=== PATIENT | female | born 1965 | race Caucasian/White ===

== ENCOUNTER → 2017-03-06 | Outpatient (CLI) | payer OTHER ==
--- NOTE | 2017-03-06 10:18 | MM ---
Reason for exam: follow-up at short interval from prior study. Last mammogram was performed 5 months ago. History: Benign US biopsy breast VAD RT of the right breast, September 24, 2016. Physical Findings: Nurse did not find any significant physical abnormalities on exam. MG Diagnostic Mammo RT w CAD CC, MLO, ML, spot compression MLO, and spot compression CC view(s) were taken of the right breast. Prior study comparison: September 24, 2016, right breast MG diagnostic mammo RT wo CAD. September 10, 2016, right breast MG work up mamm w CAD RT. There are scattered fibroglandular densities. Previous mammotome biopsy in the right breast. There is no discrete abnormality including area of concern. No significant new findings when compared with previous films. These results were verbally communicated with the patient and result sheet given to the patient on 03/06/17. ASSESSMENT: Benign, BI-RAD 2 RECOMMENDATION: Return to routine screening mammogram schedule for both breasts. Back on schedule for September 2017.
== END | disposition home or self-care (01) ==
LOC: RADMAMWWP 09:04
PROVIDERS: ATTEND Surgery
DX: R92.8 Other abnormal and inconclusive findings on diagnostic imaging of breast (principal)

== ENCOUNTER 2017-06-24 06:48 | Day surgery (SDC) | payer OTHER ==
[2017-06-19 15:29] VITALS: BMI 26.6
[~2017-06-24 06:48] MED LIST: LACTATED RINGERS 1,000 ML IV SCH
[2017-06-24 07:09] VITALS: TEMP 98.6
[2017-06-24] MEDS ORDERED: LACTATED RINGERS 1,000 ML IV ONE (07:13)
[2017-06-24] MEDS ORDERED: MIDAZOLAM 2 MG/2 ML VIAL ONE (07:36)
[2017-06-24] MEDS ORDERED: fentaNYL (PF) 50 MCG/ML 2 ML AMP ONE (07:36)
[2017-06-24] MEDS ORDERED: PROPOFOL 10 MG/ML 20 ML VIAL IV ONE (07:36)
[2017-06-24] MEDS ORDERED: GLUCAGON 1 MG/ML VIAL ONE (07:36)
--- NOTE | 2017-06-24 08:02 | P.OP ---
Date of Procedure: 06/24/17 Preoperative Diagnosis: Screening colonoscopy Postoperative Diagnosis: Tortuous redundant sigmoid colon, internal hemorrhoids, external skin tags Procedure(s) Performed: Colonoscopy Implants: Anesthesia: MAC Surgeon: Vinita Caruso Estimated Blood Loss (ml): 0 IV fluids (ml): 200 Pathology: none sent Condition: stable Disposition: PACU Indications for Procedure: Screening colonoscopy Operative Findings: Tortuous sigmoid colon, internal hemorrhoids, external skin tags Description of Procedure: Patient was taken to the endoscopy suite and following sedation rectal exam was performed. Patient was noted to have external skin tags. She has good sphincter tone and no masses. Colonoscope was passed through the anus into the rectum. The sigmoid was noted to be tortuous. The scope was carefully advanced through the sigmoid colon up to the splenic flexure. Was advanced through this the transverse colon to the hepatic flexure. Was advanced through the right colon down to the area of the cecum. Approximately 6 minutes were taken to withdraw the scope from the area of the cecum to the rectum. Circumferential observation mucosa did not reveal any lesions of concern in the cecum or right colon. No lesions of concern in the transverse colon. No lesions of concern in the left colon or sigmoid colon. Scope was brought down into the rectum where it was retroflexed and internal hemorrhoids identified. Impression/plan: 1. Tortuous sigmoid colon 2. Internal hemorrhoids 3. External skin tags Plan: 1. Repeat scope in 7-10 years
--- NOTE | 2017-06-24 08:03 | P.DS ---
Providers Attending physician: Vinita Caruso Primary care physician: Stated None Plan - Discharge Summary New Discharge Prescriptions: No Action Pravastatin Sodium [Pravachol] 80 mg PO HS Cetirizine HCl [Zyrtec] 10 mg PO HS clonazePAM [KlonoPIN] 1 mg PO BID PRN PRN Reason: Anxiety Amitriptyline HCl [Elavil] 20 mg PO HS tiZANidine HCL [Zanaflex] 4 mg PO QID Omeprazole 20 mg PO HS Hale-3 Fatty Acids/Fish Oil [Fish Oil 1,000 mg Softgel] 1 each PO DAILY Hydrocodone/Acetaminophen [Grady 10-325] 1 tab PO TID Ergocalciferol (Vitamin D2) [Vitamin D2] 50,000 unit PO GERONIMO Discharge Medication List Amitriptyline HCl [Elavil] 20 mg PO HS 06/19/17 [History] Cetirizine HCl [Zyrtec] 10 mg PO HS 06/19/17 [History] Ergocalciferol (Vitamin D2) [Vitamin D2] 50,000 unit PO GERONIMO 06/19/17 [History] Hydrocodone/Acetaminophen [Grady 10-325] 1 tab PO TID 06/19/17 [History] Hale-3 Fatty Acids/Fish Oil [Fish Oil 1,000 mg Softgel] 1 each PO DAILY [History] Omeprazole 20 mg PO HS 06/19/17 [History] Pravastatin Sodium [Pravachol] 80 mg PO HS 06/19/17 [History] clonazePAM [KlonoPIN] 1 mg PO BID PRN 06/19/17 [History] tiZANidine HCL [Zanaflex] 4 mg PO QID 06/19/17 [History] Follow up Appointment(s)/Referral(s): Vinita Caruso MD [STAFF PHYSICIAN] - As Needed Activity/Diet/Wound Care/Special Instructions: Do not drive today Discharge Disposition: HOME SELF-CARE
[2017-06-24 08:22] VITALS: BP 96/68; PULSE 82; RESP 20
== END 2017-06-24 08:34 | disposition home or self-care (01) ==
LOC: ORWHC2ENDO 06:48
PROVIDERS: ATTEND Surgery
DX: Z12.11 Encounter for screening for malignant neoplasm of colon (principal); Q43.8 Other specified congenital malformations of intestine; F17.200 Nicotine dependence, unspecified, uncomplicated; K64.8 Other hemorrhoids; L91.8 Other hypertrophic disorders of the skin; J44.9 Chronic obstructive pulmonary disease, unspecified; E78.5 Hyperlipidemia, unspecified; F41.9 Anxiety disorder, unspecified; K21.9 Gastro-esophageal reflux disease without esophagitis; M19.90 Unspecified osteoarthritis, unspecified site; Z79.82 Long term (current) use of aspirin; Z79.899 Other long term (current) drug therapy
CPT/HCPCS: J2250; J1610; J3010; J2704; G0121

== ENCOUNTER → 2017-11-11 | Outpatient (CLI) | payer OTHER ==
--- NOTE | 2017-11-11 15:07 | MM ---
Reason for exam: additional evaluation requested from prior study. Last mammogram was performed 8 months ago. History: Benign US biopsy breast VAD RT of the right breast, September 24, 2016. Physical Findings: Nurse did not find any significant physical abnormalities on exam. MG Diagnostic Mammo w CAD SATNAM Bilateral CC and MLO view(s) were taken. Prior study comparison: March 06, 2017, right breast MG diagnostic mammo RT w CAD. September 24, 2016, right breast MG diagnostic mammo RT wo CAD. The breast tissue is heterogeneously dense. This may lower the sensitivity of mammography. Finding: There are typically benign round calcifications in both breasts. Previous mammotome biopsy in the right breast. There is no discrete abnormality. These results were verbally communicated with the patient and result sheet given to the patient on 11/11/17. ASSESSMENT: Benign, BI-RAD 2 RECOMMENDATION: Routine screening mammogram of both breasts in 1 year.
== END | disposition home or self-care (01) ==
LOC: RADMAMWWP 13:03
PROVIDERS: ATTEND Surgery
DX: R92.8 Other abnormal and inconclusive findings on diagnostic imaging of breast (principal)
CPT/HCPCS: 77066

== ENCOUNTER → 2017-11-27 | Outpatient (CLI) | payer OTHER ==
--- NOTE | 2017-11-27 13:27 | BD ---
EXAMINATION TYPE: MG DEXA axial skeleton. DATE OF EXAM: 11/27/2017 COMPARISON: NONE CLINICAL HISTORY: Z13.820 SCREENING FOR OSTEOPOROSIS Height: 5 FT 4 IN Weight: 167 FRAX RISK QUESTIONS: Alcohol (3 or more units per day): NO Family History (Parent hip fracture): YES Glucocorticoids (More than 3mos): NO (Ex: prednisone, prednisolone, methylprednisolone, dexamethasone, and hydrocortisone). History of Fracture in Adulthood: NO Secondary Osteoporosis: 1. Type 1 Diabetes: NO 2. Hyperthyroidism: NO 3. Menopause before 45: NO 4. Malnutrition: NO 5. Chronic liver disease: NO Rheumatoid Arthritis: NO Current Tobacco Use: YES RISK FACTORS HISTORY OF: Surgery to Spine/Hip(right/left)/Wrist (right/left): CERV SPINE SURG X 2 When: Family History of Osteoporosis: YES Active: YES Postmenopausal woman: PT HAD ABLASION AGE 45 NOT SURE WHEN RAGHU WAS MEDICATIONS: Additional Medications: NORCO, ANXIETY MEDS, MUSCLE RELAXERS, PAIN MEDS, ANTIBIOTICS, VIT D ,ZYRTEC, OMEPRAZOLEPREVASTATIN Additional History: EXAM MEASUREMENTS: Bone mineral densitometry was performed using the [employer] System. Bone mineral density as measured about the Lumbar spine is: ----- L1-L4(G/cm2): 1.399 T Score Values are as follows: ----- L2: 1.9 ----- L3: 2.2 ----- L4: 2.2 ----- L1-L4: 1.8 Bone mineral density has: DECREASED -5.9 % since study of: 2014 Bone mineral density about the R hip (g/cm2): 1.105 Bone mineral density about the L hip (g/cm2): 0.989 T Score values are as follows: -----R Neck: 0.5 -----L Neck: -0.3 -----R Total: 0.7 -----L Total: 0.1 Bone mineral density has: DECREASED -6.6 % since study of: IMPRESSION: No evidence for osteoporosis or osteopenia. NOTE: T-SCORE=SD OF THE YOUNG ADULT MEAN.
== END | disposition home or self-care (01) ==
LOC: RADBDWWP 09:13
PROVIDERS: ATTEND Obstetrics & Gynecology
DX: Z13.820 Encounter for screening for osteoporosis (principal)
CPT/HCPCS: 77080

== ENCOUNTER → 2018-05-26 | Outpatient (CLI) | payer OTHER ==
--- NOTE | 2018-05-27 09:18 | XR ---
EXAMINATION TYPE: XR chest 2V DATE OF EXAM: 05/26/2018 COMPARISON: NONE TECHNIQUE: PA and lateral views submitted. HISTORY: Cough FINDINGS: The lungs are clear and there is no pneumothorax, pleural effusion, or focal pneumonia. Postsurgica l change overlying the cervical spine. There is a curvature of the spine. No overt failure. IMPRESSION: 1. No acute process.
== END | disposition home or self-care (01) ==
LOC: RADXRMAIN 15:54
PROVIDERS: ATTEND Nurse Practitioner Adult Health
DX: J44.1 Chronic obstructive pulmonary disease with (acute) exacerbation (principal)
CPT/HCPCS: 71046

== ENCOUNTER → 2018-11-26 | Outpatient (CLI) | payer OTHER ==
--- NOTE | 2018-11-26 14:04 | NM ---
EXAMINATION TYPE: NM thyroid image only DATE OF EXAM: 11/26/2018 COMPARISON: None HISTORY: Abnormal thyroid laboratory values TECHNIQUE: After the intravenous administration of 9.68 mCi Tc 99m Sodium Pertechnetate. FINDINGS: There is some extension of the inferior aspect of the left lower thyroid caudally as compared to the right. Some mild decreased trapping is noted at this level. Uptake is otherwise normal within the thy roid gland. 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
== END | disposition home or self-care (01) ==
LOC: RADNMMAIN 10:31
PROVIDERS: ATTEND Internal Medicine
DX: R94.6 Abnormal results of thyroid function studies (principal); Z88.8 Allergy status to other drugs, medicaments and biological substances
CPT/HCPCS: 78013; A9512

== ENCOUNTER → 2018-11-30 | Outpatient (CLI) | payer OTHER ==
--- NOTE | 2018-12-01 11:35 | MM ---
Reason for exam: screening (asymptomatic). Last mammogram was performed 1 year and 1 month ago. History: Patient is postmenopausal. Benign US biopsy breast VAD RT of the right breast, September 24, 2016. Physical Findings: A clinical breast exam by your physician is recommended on an annual basis and results should be correlated with mammographic findings. MG Screening Mammo w CAD Bilateral CC and MLO view(s) were taken. Prior study comparison: November 11, 2017, bilateral MG diagnostic mammo w CAD SATNAM. March 06, 2017, right breast MG diagnostic mammo RT w CAD. The breast tissue is heterogeneously dense. This may lower the sensitivity of mammography. Right biopsy marker noted. ASSESSMENT: Negative, BI-RAD 1 RECOMMENDATION: Routine screening mammogram of both breasts in 1 year.
== END ==
LOC: RADMAMWWP 09:29
PROVIDERS: ATTEND Obstetrics & Gynecology
DX: Z12.31 Encounter for screening mammogram for malignant neoplasm of breast (principal)
CPT/HCPCS: 77067

== ENCOUNTER → 2019-07-22 | Outpatient (CLI) | payer OTHER ==
[2019-07-22 17:42] LABS: Albumin 4.8 g/dL (3.80-4.90); Albumin/Globulin Ratio 2.29 (1.60-3.17); Bilirubin, Conjugated 0.2 mg/dL (0.20-0.40); Bilirubin,Unconjugated 0.3 mg/dL; Chol/HDL Ratio 4.59; Globulin 2.1 g/dL (1.6-3.3); LDL Cholesterol,Calculated 64.8 mg/dL (0.0-131.0); Total Bilirubin 0.5 mg/dL (0.2-1.2); Total Protein 6.9 g/dL (6.2-8.2); VLDL Calculation 57.2 mg/dL (5.00-40.00)
[2019-07-22 17:50] LABS: T4, Free (Free Thyroxine) 1.3 ng/dL (0.80-1.80)
== END | disposition home or self-care (01) ==
LOC: LABWHC1 10:19
PROVIDERS: ATTEND Internal Medicine
DX: E78.5 Hyperlipidemia, unspecified (principal)
CPT/HCPCS: 36415; 80061; 80076; 84439; 84443